=== PATIENT | male | born 1935 | race Caucasian/White ===

== ENCOUNTER → 2019-06-21 08:45 | Outpatient (CLI) | payer MEDICARE, BC ==
--- NOTE | 2019-06-25 12:52 | EC ---
PATIENT:ANJALI GRACIA DATE OF SERVICE: 06/21/19 SEX: M MEDICAL RECORD: [id number] DATE OF : 39 [facility] AGE [facility] PATIENT: 83 ADMISSION DATE: 06/21/19 REFERRING PHYSICIAN: INTERPRETING PHYSICIAN: TIFFANI SALVADOR MD ECHOCARDIOGRAM REPORT ECHO CHARGES 4 ECHO COMPLETE Date: 06/21/19 CLINICAL DIAGNOSIS: MURMUR/ABNORMAL EKG H/O HTN/CAD/CABG ECHOCARDIOGRAPHIC MEASUREMENTS (adult normal given) AC root (d.<3.7cm) 3.4 cm LV Septum d (<1.2 cm> 1.6 cm Valve Excursion 1.8 cm LV Septum (systole) 2.1 cm Left Atria (s.<4.0cm> 4.6 cm LVPW d(<1.2cm) 1.5 cm RV (d.<2.3cm) 2.7 cm LVPW (sytole) 2.2 cm LV diastole(<5.6CM) 5.7 cm MV E-F(>70mm/sec) cm LV systole 2.9 cm LVOT Diameter 2.0 cm MV exc.(>10mm) cm Est.ejection fraction (50-75%) % DOPPLER: LVIT cm/sec A 63.0 cm/sec E 80.0 cm/sec LA cm/sec RVSP 39.3 mmHg LVOT 94.0 cm/sec AOP1/2T m/s Asc. Ao 112 cm/sec RVOT 59.0 cm/sec RA cm/sec PA 91.0 cm/sec AV Gradient Peak 5.0 mmHg AV Mean 2.6 mmHg AV Area 2.9 cm MV Gradient Peak 3.0 mmHg MV Mean 0.97 mmHg MV Area cm COMMENTS: OP - HC Car Rider: 1 LUTHER ELY Margin Analyst: 3 Dr. Ashraf TAPE# PACS Pericardial Effusion N DATE OF SERVICE: 06/21/2019 Adequate 2D echo, color flow imaging, spectral Doppler, and M-Mode. LVH is present. LV internal dimension is normal. Wall motion is normal. EF is greater than or equal to 55%. Aortic valve is sclerosed without evidence of stenosis by Doppler interrogation. Left atrium is dilated at 4.6 cm. Mitral valve shows no prolapse. Mild MR. Right-sided chambers are grossly normal. Mild TR. ECHOCARDIOGRAM REPORT [id number] ANJALI GRACIA TRANSINT:[id number] Voice Confirmation ID: [id number] DOCUMENT ID: [id number] TIFFANI SALVADOR MD at 1252 CC: [id number] DICTATION DATE: 06/24/19 1346 PUMP HOUSE ENGINEER: 06/24/19 1449 DEP CLI 06/21/19 [place] [id number] [place] [id number]
== END | disposition home or self-care (01) ==
LOC: D.HCCARDIO 06-01 10:30 → D.HCCECHO 08:45 → D.HCCARDIO 09:00 → D.HCCECHO 09:00
PROVIDERS: ATTEND Internal Medicine Interventional Cardiology
DX: I10 Essential (primary) hypertension (principal)